=== PATIENT | male | born 1960 | race Caucasian/White ===

== ENCOUNTER → 2021-05-21 | Outpatient (CLI) | payer OTHER ==
[2021-05-21 08:35] LABS: HEMOGLOBIN 15.7 gm/dl (14.0-17.5); RED BLOOD COUNT 5.77 M/UL (4.20-5.50)
== END ==
LOC: RAD 08:06
PROVIDERS: Orthopaedic Surgery
DX: S46.012A Strain of muscle(s) and tendon(s) of the rotator cuff of left shoulder, initial encounter (principal); M25.812 Other specified joint disorders, left shoulder
CPT/HCPCS: 36415; 73040; 73222; 85027; 85610; 85730; A9577; Q9967

== ENCOUNTER → 2021-08-27 | Outpatient (CLI) | payer OTHER ==
[~2021-08-27] MED LIST: CARDIZEM30 MG PO; LEVOTHYROXINE100 MC2 PO; LEXAPRO10 MG PO; LIPITOR80 MG PO; LOSARTAN-HCTZ1 EAC1 PO; LOW DOSE ASPIRI81 MG PO; NEURONTIN600 MG PO; NOVOLOG 10100 UNITS1 SQ; OZEMPIC INJ; PERCOCET 7.5-31 EACH PO; PROTONIX40 MG PO; PROVENTIL HFA6.7 GM INH; SYMBICORT 16010.2 GM INH; TESTOSTERO200 MG/1 M INJ; [UNRECOGNIZED DRUG - OTHER] PO
[2021-08-27 13:03] LABS: HEMOGLOBIN 17.8 gm/dl (14.0-17.5); RED BLOOD COUNT 5.73 M/UL (4.20-5.50); WHITE BLOOD COUNT 11.1 K/UL (4.5-11.0)
[2021-08-27 13:19] LABS: BUN/CREATININE RATIO 12 (0-10)
== END ==
LOC: OPSV2 08-26 12:00 → EDSTATUS 12:00
PROVIDERS: Orthopaedic Surgery
DX: Z01.818 Encounter for other preprocedural examination (principal); M75.102 Unspecified rotator cuff tear or rupture of left shoulder, not specified as traumatic
CPT/HCPCS: 36415; 71046; 80048; 83036; 85025; 93005

== ENCOUNTER → 2021-09-09 | Day surgery (SDC) | payer OTHER ==
[~2021-09-09] VITALS: Ht 172.7 cm; Wt 117.9 kg
[~2021-09-09] MED LIST changes: +ENDOCET 10-3251 EACH PO; +PERCOCET 10-321 EACH PO
[2021-09-09 06:43] LABS: BUN/CREATININE RATIO 11 (0-10)
== END | disposition home or self-care (01) ==
LOC: OR 05:21
PROVIDERS: Orthopaedic Surgery
DX: M75.122 Complete rotator cuff tear or rupture of left shoulder, not specified as traumatic (principal); I10 Essential (primary) hypertension; E11.9 Type 2 diabetes mellitus without complications; F17.290 Nicotine dependence, other tobacco product, uncomplicated; Z20.822 Contact with and (suspected) exposure to COVID-19; W22.8XXA Striking against or struck by other objects, initial encounter; Y92.003 Bedroom of unspecified non-institutional (private) residence as the place of occurrence of the external cause
CPT/HCPCS: 36415; 80048; 82962; C1713; J0690; J1100; J2001; J2250; J2370; J2405; J2704; J2710; J2795; J3010; J3370; J7030; J7120

== ENCOUNTER → 2021-10-23 | Outpatient (CLI) | payer OTHER | LOC: KOH-I 12:32 | DX: F17.210 Nicotine dependence, cigarettes, uncomplicated (principal) | CPT/HCPCS: 71271 ==